=== PATIENT | female | born 1990 | race Caucasian/White ===

== ENCOUNTER 2017-12-09 08:57 | Emergency (ER) | payer BC ==
[2017-12-09 09:01] VITALS: BP 132/73; BMI 41.5
[2017-12-09] MEDS ORDERED: NS 1000 ML 1,000 ML ONE (09:37)
[2017-12-09] MEDS ORDERED: ZOFRAN INJ 4 MG VIAL ONE (09:38)
[2017-12-09] MEDS ORDERED: ZOFRAN INJ 4 MG VIAL IVP ONE (09:50)
[2017-12-09] MEDS ORDERED: NS 1000 ML 1,000 ML IV ONE (09:50)
--- NOTE | 2017-12-09 09:58 | DR.NAUSEAF ---
HPI - Primary Care Physician Primary Care Physician: MARILYN CAMPBELL - Complaints Chief Complaint:: PT. C/O NAUSEA/VOMITING/DIARRHEA THAT BEGAN AT 0230. PT. ALSO C/O WEAKNESS & CHILLS. - Source History Provided: Patient - Mode of Arrival Mode of Arrival: Ambulatory - Timing Onset of Chief Complaint: 12/09/17 PMH - PMH Past Medical History: Yes Past Medical History: GERD Past Surgical History: Yes Surgical History: Cholecystectomy - Family History History of Family Medical Conditions: Yes Family Medical History: Diabetes Mellitus, Cancer, [place], Hypertension - Social History Does patient currently use any type of tobacco product: No Have you used tobacco products in the last 12 months: No Type of Tobacco Use: None Does any household member use tobacco: No Alcohol Use: None Do you use any recreational Drugs:: No Lives With: Significant Other Lives Where: Home - infectious screening In the last 2 months have you had wt loss of >10#?: NO Have you had fever, night sweats or hemotysis?: No Have you traveled outside the country in the last 6 months?: No Isolation: Standard PE - Vital Signs Vitals: Temperature 97.8 F Pulse Rate 121 Respiratory Rate 18 Blood Pressure [Left Arm] 131/70 Blood Pressure [Right Arm] 119/76 Blood Pressure 132/73 O2 Sat by Pulse Oximetry 97 ROR - Labs Reviewed Result Diagrams: 12/09/17 09:57 12/09/17 09:57 Laboratory: WBC 11.4 X10^3/uL (3.6-10.0) H 12/09/17 09:57 RBC 4.94 X10^6/uL (3.5-5.4) 12/09/17 09:57 Hgb 14.8 g/dL (12.0-16.0) 12/09/17 09:57 Hct 43.7 % (36.0-47.0) 12/09/17 09:57 MCV 88.4 fL (80.0-100.0) 12/09/17 09:57 MCH 30.0 pg (27.0-34.0) 12/09/17 09:57 MCHC 33.9 g/dL (33.0-35.0) 12/09/17 09:57 RDW 13.5 % (11.6-16.5) 12/09/17 09:57 Plt Count 307 X10^3/uL (150.0-450.0) 12/09/17 09:57 Plt Count Comment Adequate (ADEQUATE) 12/09/17 09:57 MPV 8.7 fL (7.4-11.0) 12/09/17 09:57 Neut % (Auto) 92.3 % (42.0-75.0) H 12/09/17 09:57 Lymph % (Auto) 3.7 % (21.0-51.0) L 12/09/17 09:57 [place] % (Auto) 3.4 % (0.0-13.0) 12/09/17 09:57 Eos % (Auto) 0.3 % (0.9-2.9) L 12/09/17 09:57 Baso % (Auto) 0.3 % (0.2-1.0) 12/09/17 09:57 Neut # (Auto) 10.5 x10^3/uL (2.2-4.8) H 12/09/17 09:57 Lymph # (Auto) 0.4 X10^3/uL (1.3-2.9) L 12/09/17 09:57 [place] # (Auto) 0.4 x10^3/uL (0.3-0.8) 12/09/17 09:57 Eos # (Auto) 0.0 x10^3/uL (0.0-0.2) 12/09/17 09:57 Baso # (Auto) 0.0 X10^3/uL (0.0-0.1) 12/09/17 09:57 Absolute Nucleated RBC 0.0 /100WBC 12/09/17 09:57 Total Counted 100 12/09/17 09:57 Neutrophils % (Manual) 87 % (39-76) H 12/09/17 09:57 Band Neutrophils % 3 % (0-10) 12/09/17 09:57 Lymphocytes % (Manual) 9 % (13-43) L 12/09/17 09:57 Monocytes % (Manual) 1 % (4-9) L 12/09/17 09:57 Plt Morphology Comment Normal (NORMAL) 12/09/17 09:57 RBC Morphology Normal (NORMAL) 12/09/17 09:57 Sodium 141 mmol/L (136-145) 12/09/17 09:57 Corrected Sodium 142 mmol/L (136-145) 12/09/17 09:57 Potassium 4.6 mmol/L (3.5-5.1) 12/09/17 09:57 Chloride 105 mmol/L (98-107) 12/09/17 09:57 Carbon Dioxide 21.6 mmol/L (21-32) 12/09/17 09:57 BUN 15 mg/dL (7-18) 12/09/17 09:57 Creatinine 0.86 mg/dL (0.55-1.02) 12/09/17 09:57 Est GFR (MDRD) Af Amer > 60 (>60) 12/09/17 09:57 Est GFR (MDRD) Non-Af > 60 (>60) 12/09/17 09:57 Glucose 127 mg/dL (65-99) H 12/09/17 09:57 Calcium 8.8 mg/dL (8.5-10.1) 12/09/17 09:57 Corrected Calcium TNP 12/09/17 09:57 Total Bilirubin 0.50 mg/dL (0.2-1.0) 12/09/17 09:57 AST 78 Units/L (15-37) H 12/09/17 09:57 ALT 76 Units/L (12-78) 12/09/17 09:57 Alkaline Phosphatase 58 Units/L (46-116) 12/09/17 09:57 Total Protein 8.8 g/dL (6.4-8.2) H 12/09/17 09:57 Albumin 3.5 g/dL (3.4-5.0) 12/09/17 09:57 Globulin 5.3 g/dL (2.5-4.5) H 12/09/17 09:57 Albumin/Globulin Ratio 0.7 Ratio (1.1-2.1) L 12/09/17 09:57 Amylase 28 Units/L (25-115) 12/09/17 09:57 Lipase 112 Units/L (73-393) 12/09/17 09:57 Specimen Type Clean catch urine 12/09/17 09:56 Urine Color Yellow (YELLOW) 12/09/17 09:56 Urine Appearance Slightly hazy (CLEAR) 12/09/17 09:56 Urine pH 5.0 (5.0 - 8.0) 12/09/17 09:56 Ur Specific [place] 1.020 (1.000-1.030) 12/09/17 09:56 Urine Protein 2+ (NEGATIVE) 12/09/17 09:56 Urine Glucose (UA) Negative (NEGATIVE) 12/09/17 09:56 Urine Ketones 3+ (NEGATIVE) 12/09/17 09:56 Urine Occult Blood 1+ (NEGATIVE) 12/09/17 09:56 Urine Nitrite Negative (NEGATIVE) 12/09/17 09:56 Urine Bilirubin Negative (NEGATIVE) 12/09/17 09:56 Urine Urobilinogen Normal (NORMAL) 12/09/17 09:56 Ur Leukocyte Esterase 1+ (NEGATIVE) 12/09/17 09:56 Urine RBC 0-2 /HPF (NONE SEEN) 12/09/17 09:56 Urine WBC 3-5 /HPF (NONE SEEN) 12/09/17 09:56 Ur Squamous Epith Cells Numerous /HPF (NEGATIVE) 12/09/17 09:56 Urine Bacteria 1+ /HPF (NEGATIVE) 12/09/17 09:56 Urine Mucus Many /HPF (NEGATIVE) 12/09/17 09:56 Ur Culture Indicated? No/not indicated 12/09/17 09:56 - Diagnosis Discharge Problem: Gastroenteritis, Nausea and vomiting in adult patient Diarrhea Qualifiers: Diarrhea type: unspecified type Qualified Code(s): R19.7 - Diarrhea, unspecified - Discharge Plan Condition: Stable Prescriptions: Dicyclomine HCl [Bentyl Cap 10 mg] 10 mg PO TID PRN #15 cap PRN Reason: Diphenoxylate/Atropine [Lomotil] 1 tab PO TID PRN #15 tab PRN Reason: Ondansetron [Zofran ODT 8 mg] 8 mg PO Q8H PRN #12 tab PRN Reason: Nausea/Vomiting - Follow ups/Referrals Follow ups/Referrals: URI KEY [Primary Care Provider] - 2 days - Instructions Instructions: Diarrhea, Adult, [id number], Nausea and Vomiting, Adult, Easy- to-Read, Viral Gastroenteritis, Adult, [id number] Additional Instructions: RETURN TO ED IF WORSE.
[2017-12-09 10:23] LABS: BASOPHILS % (AUTO) 0.3 % (0.2-1.0); EOSINOPHILS % (AUTO) 0.3 % (0.9-2.9); HEMATOCRIT 43.7 % (36.0-47.0); HEMOGLOBIN 14.8 g/dL (12.0-16.0); LYMPHOCYTES # (AUTO) 0.4 X10^3/uL (1.3-2.9); LYMPHOCYTES % (AUTO) 3.7 % (21.0-51.0); MEAN CORPUSCULAR HGB CONC 33.9 g/dL (33.0-35.0); MEAN CORPUSCULAR VOLUME 88.4 fL (80.0-100.0); MEAN PLATELET VOLUME 8.7 fL (7.4-11.0); MONOCYTES # (AUTO) 0.4 x10^3/uL (0.3-0.8); MONOCYTES % (AUTO) 3.4 % (0.0-13.0); NEUTROPHILS # (AUTO) 10.5 x10^3/uL (2.2-4.8); NEUTROPHILS % (AUTO) 92.3 % (42.0-75.0); PLATELET COUNT 307 X10^3/uL (150.0-450.0); RED BLOOD COUNT 4.94 X10^6/uL (3.5-5.4); RED CELL DISTRIBUTION WIDTH 13.5 % (11.6-16.5); WHITE BLOOD COUNT 11.4 X10^3/uL (3.6-10.0)
[2017-12-09 10:35] LABS: BILIRUBIN,URINE NEGATIVE (NEGATIVE); BLOOD/HEMOGLOBIN,URINE 1+ (NEGATIVE); GLUCOSE, URINE NEGATIVE (NEGATIVE); KETONES,URINE 3+ (NEGATIVE); LEUKOCYTE ESTERASE ,URINE 1+ (NEGATIVE); NITRITES,URINE NEGATIVE (NEGATIVE); PROTEIN,URINE 2+ (NEGATIVE); UROBILINOGEN,URINE NORMAL (NORMAL)
--- NOTE | 2017-12-09 10:36 | RAD ---
ACUTE ABDOMINAL SERIES CLINICAL HISTORY: 26-year-old female with abdominal pain, nausea and vomiting. COMPARISON: Abdominal radiograph 03/02/2013. FINDINGS: PA chest radiograph demonstrates normal cardiopericardial silhouette. There is no focal consolidation , pleural effusion or pneumothorax. Pulmonary vascularity is normal. Abdominal radiographs demonstrate a nonobstructive bowel gas pattern. Gas and stool are seen througho ut the colon. There is no small bowel distention. There is no radiographic evidence of pneumoperitone um. Imaged osseous structures are intact. Soft tissues are unremarkable. IMPRESSION: 1. No acute cardiopulmonary process. 2. Nonobstructive bowel gas pattern without radiographic evidence of pneumoperitoneum. Reported By:
[2017-12-09 10:37] LABS: ALANINE AMINOTRANSFERASE 76 Units/L (12-78); ALBUMIN 3.5 g/dL (3.4-5.0); ALKALINE PHOSPHATASE 58 Units/L (46-116); AMYLASE 28 Units/L (25-115); ASPARTATE AMINO TRANSFERASE 78 Units/L (15-37); BLOOD UREA NITROGEN 15 mg/dL (7-18); CALCIUM 8.8 mg/dL (8.5-10.1); CARBON DIOXIDE 21.6 mmol/L (21-32); CHLORIDE 105 mmol/L (98-107); COR NA(FOR HYPERGLY) 142 mmol/L (136-145); CREATININE 0.86 mg/dL (0.55-1.02); LIPASE 112 Units/L (73-393); SODIUM 141 mmol/L (136-145); TOTAL PROTEIN 8.8 g/dL (6.4-8.2); eGFR BLACK RACES > 60 (>60); eGFR NON BLACK RACES > 60 (>60)
[2017-12-09 10:41] LABS: APPEARANCE,URINE SLIGHTLY HAZY (CLEAR); COLOR,URINE YELLOW (YELLOW)
[2017-12-09 10:44] LABS: BACTERIA,URINE 1+ /HPF (NEGATIVE); RBC,URINE 0-2 /HPF (NONE SEEN); SQUAMOUS EPITHELIAL CELL,UR NUMEROUS /HPF (NEGATIVE)
[2017-12-09 10:45] LABS: MUCUS,URINE MANY /HPF (NEGATIVE)
[2017-12-09 10:47] LABS: BAND NEUTROPHILS % 3 % (0-10); PLATELET MORPHOLOGY COMMENT NORMAL (NORMAL)
== END 2017-12-09 11:32 | disposition home or self-care (01) ==
LOC: ER 09:06
DX: K52.89 Other specified noninfective gastroenteritis and colitis (principal); R11.2 Nausea with vomiting, unspecified; R19.7 Diarrhea, unspecified
CPT/HCPCS: 36415; 74022; 80053; 81001; 82150; 83690; 85025; 96365; 96374; 99283; A4222; J2405